=== PATIENT | female | born 1960 | race Caucasian/White ===

== ENCOUNTER 2018-11-25 00:56 | Inpatient (IN) ==
[2018-11-25] MEDS ORDERED: dilTIAZem HCl 5 MG/ML 5 ML VIAL IV ONE (01:08)
[2018-11-25] MEDS ORDERED: dilTIAZem HCl 5 MG/ML 5 ML VIAL IV STA (01:08)
[2018-11-25] MEDS ORDERED: SODIUM CHLORIDE 0.9% 1000ML 1,000 ML IV SCH (01:15)
[2018-11-25 01:16] LABS: Hematocrit (blood only) 46.6 % (37-47); Mean Corpuscular Hgb Conc 34.3 g/dL (32-36); Mean Corpuscular Volume 87.4 fL (80-100); Mean Platelet Volume 10.4 fL (7.4-10.4); Platelet Count 286 K/uL (130-400); RDW Coefficient of Variation 12.5 % (11.5-14.5); Red Blood Count 5.33 M/uL (4.2-5.4); White Blood Count 14.65 K/uL (4.8-10.8)
[2018-11-25] MEDS ORDERED: dilTIAZem HCl 125 MG in DEXTROSE 5% 100 ML IV STA (01:16)
[2018-11-25 01:27] LABS: INR 0.9 (0.9-1.1); Partial Thromboplastin Ratio 0.9; Partial Thromboplastin Time 25.2 Seconds (21.0-31.0); Prothrombin Time 9.7 Seconds (9.0-12.0)
[2018-11-25] MEDS ORDERED: dilTIAZem HCl 125 MG in DEXTROSE 5% 100 ML IV SCH ×2 (01:30→04:55)
[2018-11-25 01:33] LABS: Albumin Level 4.2 gm/dl (3.4-5.0); BUN Creatinine Ratio 18.7 (10-20); Est GFR (African American) 68.4; Magnesium 2.3 mg/dl (1.8-2.4); Potassium 3.4 mmol/L (3.5-5.1)
[2018-11-25 01:40] LABS: Basophils # (auto) 0.04 K/uL (0-0.2); Basophils % (auto) 0.3 %; Eosinophils # (auto) 0.34 K/uL (0-0.5); Eosinophils % (auto) 2.3 %; Immature Granulocytes # (auto) 0.05 K/uL (0.00-0.02); Immature Granulocytes % (auto) 0.3 %; Lymphocytes # (auto) 5.15 K/uL (1.2-3.4); Lymphocytes % (auto) 35.2 %; Monocytes # (auto) 1.61 K/uL (0.11-0.59); Neutrophils # (auto) 7.46 K/uL (1.4-6.5); Neutrophils % (auto) 50.9 %
[2018-11-25 01:44] LABS: Albumin Globulin Ratio 1.1 (0.9-2); Bilirubin,Total 0.5 mg/dl (0.2-1); Total Protein 8.2 gm/dl (6.4-8.2); Troponin I 0.016 ng/ml (0-0.045)
[2018-11-25] MEDS ORDERED: POTASSIUM CHLORIDE 20 MEQ TABCR PO STA (02:25)
[2018-11-25] MEDS ORDERED: METOPROLOL TARTRATE 50 MG TAB PO STA (02:28)
--- NOTE | 2018-11-25 02:30 | History & Physical Report ---
Date of Service November 25, 2018 Assessment & Plan (1) Atrial fibrillation with RVR: New onset Rule out pulmonary embolism with pleuritic chest pain complaints Hypokalemia, heavy caffeinated beverage intake possibly contributory to tachyarrhythmia. Hyperglycemia rule out DM PCU Initiate beta-serge Wean off Cardizem drip Replace potassium CT chest PE study TTE, Cardiology consult RE new onset A. fib (Dr. Zapata as per patient family's request.) IV heparin for thromboembolic prophylaxis for now for AF. Patient counseled to limit caffeine dated beverage intake in light of tachyarrhythmia Check hemoglobin A1C DVT prophylaxis. Heparin Full code History of Present Illness Chief Complaint: Chest pain Primary Care Provider: Bruce Wills History obtained from patient, family, and records. No significant medical history. Patient was lying in bed last night when she noted pleuritic midsternal chest pain and heaviness, feeling tingly, and palpitations. No shortness of breath no diaphoresis. Patient admits to daily caffeinated soda intake (5/day). Short lived episodes of palpitations noted in the last month. No consultations done. At the ER, patient noted to be in rapid A. fib, cardiac rate 150s IV Cardizem bolus/drip initiated at the ER. 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 Beliefs That Will Affect Care: None Current Living Situation: Spouse Other Information That Helps Us Care for You: No Feels Safe at Home: Yes Safety Concerns: Feels Safe At This Time Smoking Status: Never smoker Hx Alcohol Use: No Hx Substance Use: No Review of Systems As per HPI, all 10 systems reviewed, all other ROS negative Physical Exam Vital Signs (Past 24 Hours): Last Vital Signs Temp 36.4 C L 11/25/18 00:58 Pulse 98 H 11/25/18 00:58 Resp 18 11/25/18 00:58 BP 112/85 11/25/18 00:58 Pulse Ox 98 11/25/18 01:35 Physical Exam: GENERAL: Comfortable, pleasant, no respiratory distress, obese SKIN: Normal color, warm HEENT: Bespectacled, pink palpebral conjunctivae, no ptosis, dry buccal mucosa NECK : Supple, short, no tenderness CHEST : CTA, no tenderness HEART : Tachycardic, no obvious murmurs ABDOMEN: Some distention, nontender EXTREMITIES : No LE swelling/tenderness, no other conspicuous deformities noted NEUROLOGIC : Coherent, no facial asymmetry, no other gross focality Results & Data Laboratory Results Laboratory Results WBC 14.65 K/uL (4.8-10.8) H 11/25/18 01:07 RBC 5.33 M/uL (4.2-5.4) 11/25/18 01:07 Hgb 16.0 g/dL (12.0-16.0) 11/25/18 01:07 Hct 46.6 % (37-47) 11/25/18 01:07 MCV 87.4 fL (80-100) 11/25/18 01:07 MCH 30.0 pg (25-34) 11/25/18 01:07 MCHC 34.3 g/dL (32-36) 11/25/18 01:07 RDW Std Deviation 40.0 fL (36.4-46.3) 11/25/18 01:07 RDW Coeff of Isac 12.5 % (11.5-14.5) 11/25/18 01:07 Plt Count 286 K/uL (130-400) 11/25/18 01:07 MPV 10.4 fL (7.4-10.4) 11/25/18 01:07 Immature Gran % (Auto) 0.3 % 11/25/18 01:07 Neut % (Auto) 50.9 % 11/25/18 01:07 Lymph % (Auto) 35.2 % 11/25/18 01:07 [place] % (Auto) 11.0 % 11/25/18 01:07 Eos % (Auto) 2.3 % 11/25/18 01:07 Baso % (Auto) 0.3 % 11/25/18 01:07 Immature Gran # (Auto) 0.05 K/uL (0.00-0.02) H 11/25/18 01:07 Neut # (Auto) 7.46 K/uL (1.4-6.5) H 11/25/18 01:07 Lymph # (Auto) 5.15 K/uL (1.2-3.4) H 11/25/18 01:07 [place] # (Auto) 1.61 K/uL (0.11-0.59) H 11/25/18 01:07 Eos # (Auto) 0.34 K/uL (0-0.5) 11/25/18 01:07 Baso # (Auto) 0.04 K/uL (0-0.2) 11/25/18 01:07 PT 9.7 Seconds (9.0-12.0) 11/25/18 01:07 INR 0.9 (0.9-1.1) 11/25/18 01:07 APTT 25.2 Seconds (21.0-31.0) 11/25/18 01:07 PTT Ratio 0.9 11/25/18 01:07 Sodium 142 mmol/L (136-145) 11/25/18 01:07 Potassium 3.4 mmol/L (3.5-5.1) L 11/25/18 01:07 Chloride 108 mmol/L (98-107) H 11/25/18 01:07 Carbon Dioxide 29 mmol/L (21-32) 11/25/18 01:07 Anion Gap 5.0 (3-11) 11/25/18 01:07 BUN 19 mg/dl (7-18) H 11/25/18 01:07 Creatinine 1.03 mg/dl (0.6-1.2) 11/25/18 01:07 Est Cr Clr Drug Dosing 70.0 ml/min 11/25/18 01:07 Est GFR ( Amer) 68.4 11/25/18 01:07 Est GFR (Non-Af Amer) 59.0 11/25/18 01:07 BUN/Creatinine Ratio 18.7 (10-20) 11/25/18 01:07 Glucose 125 mg/dl (70-99) H 11/25/18 01:07 Calcium 9.0 mg/dl (8.5-10.1) 11/25/18 01:07 Magnesium 2.3 mg/dl (1.8-2.4) 11/25/18 01:07 Total Bilirubin 0.5 mg/dl (0.2-1) 11/25/18 01:07 AST 15 U/L (15-37) 11/25/18 01:07 ALT 24 U/L (12-78) 11/25/18 01:07 Alkaline Phosphatase 84 U/L (45-117) 11/25/18 01:07 POC Troponin I < 0.03 ng/ml (0-0.045) 11/25/18 01:09 Troponin I 0.016 ng/ml (0-0.045) 11/25/18 01:07 Total Protein 8.2 gm/dl (6.4-8.2) 11/25/18 01:07 Albumin 4.2 gm/dl (3.4-5.0) 11/25/18 01:07 Globulin 4.0 gm/dl (2.5-4.0) 11/25/18 01:07 Albumin/Globulin Ratio 1.1 (0.9-2) 11/25/18 01:07 Lipase 140 U/L (73-393) 11/25/18 01:07 TSH 2.370 uIu/ml (0.300-4.500) 11/25/18 01:07 Diagnostic Findings Chest x-ray as per my interpretation cardiomegaly EKG as per my interpretation : Rate 160, A. fib, PRWP
[2018-11-25] MEDS ORDERED: METOPROLOL TARTRATE 1 MG/ML VIAL IV STA (02:56)
[2018-11-25] MEDS ORDERED: LACTATED RINGER'S 1,000 ML IV ONE ×3 (02:56→05:51)
[2018-11-25] MEDS ORDERED: Heparin IV Standard *NO* Bolus STA (03:06)
--- NOTE | 2018-11-25 03:10 | Emergency Department Note ---
History of Present Illness General Chief complaint: Chest Pain Stated complaint: CHEST PAIN History of Present Illness Maximum Pain Intensity: 10 This 58-year-old presents to the ER complaining of heart racing since 10 PM Location: Chest Quality: Heart racing Severity: Moderate Duration: Since 10 PM Timing: Since 10 PM Context: Patient was concerned and came in Modifying factors: better with nothing; worse with nothing Patient states she was sitting in her room as she is babysitting her grandkids and felt her heart racing. She states 1 year ago she had the same symptoms that resolved on its own. She did not see anybody for this. Patient states she is healthy with no active medical problems. Patient states she has for coca russell daily. No other caffeine. No alcohol or drug use. No change in her daily activities. Patient denies chest pain, dyspnea, abdominal pain, leg pain or swelling. No prior heart testing Home Medications Home Medications Medication Instructions Recorded Confirmed Type No Known Home Medications 11/25/18 11/25/18 History Allergies Allergy/AdvReac Type Severity Reaction Status Date / Time No Known Allergies Allergy Unverified 11/25/18 02:24 Past Med/Surg History Medical History No acute medical problems Social History Feels Safe at Home: Yes Smoking Status: Never smoker Review of Systems All systems reviewed & are unremarkable except as noted in HPI & below Physical Exam Vital Signs Vital Signs - 24 hr 11/25/18 00:57 11/25/18 00:58 11/25/18 01:35 Temperature 36.4 C L Temperature Source Oral Sepsis Recent Fever Within 48 Hours No Sepsis Action Taken by Nursing No Action Required Pulse Rate 98 H Pulse Rate [Apical] Pulse Rhythm [Apical] Respiratory Rate 18 Respiratory Effort / Characteristics Respiratory Depth Normal Normal Blood Pressure 112/85 Blood Pressure [Left Arm] Blood Pressure Mean 94 Blood Pressure Mean [Left Arm] Blood Pressure Position [Left Arm] Pulse Oximetry 97 98 Oxygen Delivery Method Room Air Room Air Room Air 11/25/18 01:57 Temperature Temperature Source Sepsis Recent Fever Within 48 Hours Sepsis Action Taken by Nursing Pulse Rate Pulse Rate [Apical] 155 H Pulse Rhythm [Apical] Irregular Respiratory Rate 18 Respiratory Effort / Characteristics Non-Labored Respiratory Depth Normal Blood Pressure Blood Pressure [Left Arm] 126/70 Blood Pressure Mean Blood Pressure Mean [Left Arm] 88 Blood Pressure Position [Left Arm] Lying Pulse Oximetry 98 Oxygen Delivery Method Room Air VITALS: Vitals are noted on the nurse's note and reviewed by myself. Vital signs tachycardic. GENERAL: Pleasant female, in no acute distress, nondiaphoretic, well-developed well-nourished. SKIN: The skin was without rashes, erythema, edema, or bruising. There is no tenting of the skin. Capillary reflex less than 2 seconds. HEAD: Normocephalic atraumatic. EARS: External auditory canals clear, tympanic membranes pearly dubon without erythema or effusion bilaterally. EYES: Pupils equal round and reactive to light and accommodation. Conjunctivae without injection, sclerae without icterus. Extraocular movements intact. NOSE: Patent, turbinates without inflammation or discharge. MOUTH: Mucous membranes moist. Pharynx without erythema or exudate. Uvula midline. Airway patent. Tongue does not deviate. NECK: Supple without nuchal rigidity. No lymphadenopathy. No thyromegaly. Cervical spine is nontender. No JVD. HEART: Tachycardic irregularly irregular LUNGS: Clear to auscultation bilaterally without wheezes, rales or rhonchi. No retractions or accessory muscle use. ABDOMEN: Positive bowel sounds x 4. Normal tympanic percussion. Soft, nontender, without masses or organomegaly. Singleton sign negative. No guarding or rebound tenderness. No CVA tenderness MUSCULOSKELETAL: No muscle atrophy, erythema, or edema noted. NEURO: Patient was alert and oriented to person place and time. Normal sensation to light and sharp touch. No focal neurological deficits. Course Administered Medications Diltiazem HCl 125 mg/ Dextrose 125 mls @ 15 mls/hr IV [facility]H20M [facility]; Protocol Stop: 12/25/18 01:29 Last Titration: 11/25/18 01:38 Dose: 15 mg/hr, 15 mls/hr Documented by: [id number] Admin: 11/25/18 01:33 Dose: 5 mg/hr, 5 mls/hr Documented by: [id number] Cosigned by: [id number] Discontinued Medications Diltiazem HCl (Cardizem) Confirm Administered Dose 25 mg IV .[facility] ONE Stop: 11/25/18 01:09 Last Admin: 11/25/18 01:37 Dose: Not Given Documented by: [id number] Diltiazem HCl (Cardizem) 20 mg IV NOW STA Stop: 11/25/18 01:09 Last Admin: 11/25/18 01:29 Dose: 20 mg Documented by: [id number] Cosigned by: [id number] Sodium Chloride (Nss 1000ml) 1,000 mls @ 999 mls/hr IV .Q1H1M CYNDI Stop: 11/25/18 02:15 Last Infusion: 11/25/18 02:33 Dose: 0 mls/hr Documented by: [id number] Admin: 11/25/18 01:29 Dose: 999 mls/hr Documented by: [id number] Metoprolol Tartrate (Lopressor) 25 mg PO NOW STA Stop: 11/25/18 02:29 Last Admin: 11/25/18 02:47 Dose: 25 mg Documented by: [id number] Potassium Chloride (Klor-Con M20) 60 meq PO NOW STA Stop: 11/25/18 02:26 Last Admin: 11/25/18 02:47 Dose: 60 meq Documented by: [id number] Medical Decision Making Medical Records Attestation: I reviewed the patient's medical records. Home Medications Current Medication List: was personally reviewed by me Laboratory Data Attestation: I reviewed the patient's lab results. Result diagrams: 11/25/18 01:07 11/25/18 01:07 Lab Results 11/25/18 11/25/18 11/25/18 Range/Units 01:07 01:07 01:07 WBC 14.65 H (4.8-10.8) K/uL RBC 5.33 (4.2-5.4) M/uL Hgb 16.0 (12.0-16.0) g/dL Hct 46.6 (37-47) % MCV 87.4 (80-100) fL MCH 30.0 (25-34) pg MCHC 34.3 (32-36) g/dL RDW Std Deviation 40.0 (36.4-46.3) fL RDW Coeff of Isac 12.5 (11.5-14.5) % Plt Count 286 (130-400) K/uL MPV 10.4 (7.4-10.4) fL Immature Gran % (Auto) 0.3 % Neut % (Auto) 50.9 % Lymph % (Auto) 35.2 % [place] % (Auto) 11.0 % Eos % (Auto) 2.3 % Baso % (Auto) 0.3 % Immature Gran # (Auto) 0.05 H (0.00-0.02) K/uL Neut # (Auto) 7.46 H (1.4-6.5) K/uL Lymph # (Auto) 5.15 H (1.2-3.4) K/uL [place] # (Auto) 1.61 H (0.11-0.59) K/uL Eos # (Auto) 0.34 (0-0.5) K/uL Baso # (Auto) 0.04 (0-0.2) K/uL PT 9.7 (9.0-12.0) Seconds INR 0.9 (0.9-1.1) APTT 25.2 (21.0-31.0) Seconds PTT Ratio 0.9 Sodium 142 (136-145) mmol/L Potassium 3.4 L (3.5-5.1) mmol/L Chloride 108 H (98-107) mmol/L Carbon Dioxide 29 (21-32) mmol/L Anion Gap 5.0 (3-11) BUN 19 H (7-18) mg/dl Creatinine 1.03 (0.6-1.2) mg/dl Est Cr Clr Drug Dosing 70.0 ml/min Est GFR ( Amer) 68.4 Est GFR (Non-Af Amer) 59.0 BUN/Creatinine Ratio 18.7 (10-20) Glucose 125 H (70-99) mg/dl Calcium 9.0 (8.5-10.1) mg/dl Magnesium 2.3 (1.8-2.4) mg/dl Total Bilirubin 0.5 (0.2-1) mg/dl AST 15 (15-37) U/L ALT 24 (12-78) U/L Alkaline Phosphatase 84 (45-117) U/L POC Troponin I (0-0.045) ng/ml Troponin I 0.016 (0-0.045) ng/ml Total Protein 8.2 (6.4-8.2) gm/dl Albumin 4.2 (3.4-5.0) gm/dl Globulin 4.0 (2.5-4.0) gm/dl Albumin/Globulin Ratio 1.1 (0.9-2) Lipase 140 (73-393) U/L TSH 2.370 (0.300-4.500) uIu/ml 11/25/18 Range/Units 01:09 WBC (4.8-10.8) K/uL RBC (4.2-5.4) M/uL Hgb (12.0-16.0) g/dL Hct (37-47) % MCV (80-100) fL MCH (25-34) pg MCHC (32-36) g/dL RDW Std Deviation (36.4-46.3) fL RDW Coeff of Isac (11.5-14.5) % Plt Count (130-400) K/uL MPV (7.4-10.4) fL Immature Gran % (Auto) % Neut % (Auto) % Lymph % (Auto) % [place] % (Auto) % Eos % (Auto) % Baso % (Auto) % Immature Gran # (Auto) (0.00-0.02) K/uL Neut # (Auto) (1.4-6.5) K/uL Lymph # (Auto) (1.2-3.4) K/uL [place] # (Auto) (0.11-0.59) K/uL Eos # (Auto) (0-0.5) K/uL Baso # (Auto) (0-0.2) K/uL PT (9.0-12.0) Seconds INR (0.9-1.1) APTT (21.0-31.0) Seconds PTT Ratio Sodium (136-145) mmol/L Potassium (3.5-5.1) mmol/L Chloride (98-107) mmol/L Carbon Dioxide (21-32) mmol/L Anion Gap (3-11) BUN (7-18) mg/dl Creatinine (0.6-1.2) mg/dl Est Cr Clr Drug Dosing ml/min Est GFR ( Amer) Est GFR (Non-Af Amer) BUN/Creatinine Ratio (10-20) Glucose (70-99) mg/dl Calcium (8.5-10.1) mg/dl Magnesium (1.8-2.4) mg/dl Total Bilirubin (0.2-1) mg/dl AST (15-37) U/L ALT (12-78) U/L Alkaline Phosphatase (45-117) U/L POC Troponin I < 0.03 (0-0.045) ng/ml Troponin I (0-0.045) ng/ml Total Protein (6.4-8.2) gm/dl Albumin (3.4-5.0) gm/dl Globulin (2.5-4.0) gm/dl Albumin/Globulin Ratio (0.9-2) Lipase (73-393) U/L TSH (0.300-4.500) uIu/ml MDM Narrative Prior records/ancillary studies reviewed. Triage Nursing notes reviewed. Additional history obtained from family. The patient's history was concerning for palpitations. Differential diagnosis: Etiologies such as premature contractions, electrolyte abnormality, cardiac dysrhythmia, thyroid dysfunction, pulmonary embolism, infection, gastrointestinal, as well as others were entertained. Physical examination: Benign as above. ER treatment provided: IV Cardizem x2 and drip was initiated On reassessment the patient felt better. Diagnostic interpretation by me: Cardiac monitoring revealed A. fib with RVR. The electrocardiogram was irregularly irregular, minimal ST depression in the lateral leads, ventricular rate of 166. Impression A. fib with RVR interpreted by myself. No old EKG The labs revealed negative troponin. Euthyroid Imaging studies: Chest x-ray with no acute consolidation, pneumothorax or free air per my interpretation. CHADS2 Score Congestive HF (1): 0 Hypertension (1) :0 Age >75 years (1) :0 Diabetes mellitus (1):0 Stroke/TIA/TE (2): 0 Score: 0 CHADS2 Unadjusted ischemic stroke rate (% per year) 0: 0.6% 1: 3.0% 2: 4.2% 3: 7.1% 4: 11.1% 5: 12.5% 6: 13.0% Consultation: A consultation was placed with Dr. Schmidt, hospitalist. The case was discussed and diagnostics were reviewed. The patient was evaluated in the ER for further treatment. This appears to be consistent with new onset A. fib with RVR. Patient was given 2 boluses of Cardizem with no real change in heart rate. She was started on a drip. Patient is agreeable treatment plan of admission. Medicine was consulted. By the evaluation outlined above emergent etiologies such as electrolyte abnormality thyroid dysfunction, pulmonary embolism, infection, as well as others were deemed relatively unlikely. The pt informed about the findings as listed above. All questions were answered and pleased with the treatment. Impression & Plan Atrial fibrillation with RVR Critical Care Time I have personally spent greater than 30 minutes of critical care time in the direct management of this patient. This includes bedside care, interpretation of diagnostic studies, and testing, discussion with consultants, patient, and family members, and other required patient management activities. This 30 minutes is in excess of all separately billable procedures. Critical Care Time: Yes Total Critical Care Time: 30 Discharge Plan Visit Data Chief Complaint: Chest Pain Stated Complaint: CHEST PAIN ED Provider: Cindy Santiago ED Midlevel Provider: Maria Elena Lake Discharge Problem: Atrial fibrillation with RVR Patient Disposition: Admitted As Inpatient Condition: Good Forms Stand Alone Forms: Call Back Authorization, [facility] Prescriptions Prescriptions: No Action No Known Home Medications RF: 0 Referrals Referrals: Bruce Wills [Primary Care Provider] -
[2018-11-25] MEDS ORDERED: HEPARIN 25000 UNIT/500 ML D5W IV ONE (03:40)
[2018-11-25] MEDS ORDERED: OPTIRAY 320 125ml IV PRN (04:33)
[2018-11-25] MEDS ORDERED: MoRPHine SULFATE 4 MG/ML 1 ML CARP\\VIAL IV PRN (04:55)
[2018-11-25] MEDS ORDERED: NITROGLYCERIN SL 0.4 MG/TAB TAB SL PRN (04:55)
[2018-11-25] MEDS ORDERED: LORazepam 0.25 MG/0.5 ML VIAL IV PRN (04:55)
[2018-11-25] MEDS ORDERED: TRAMADOL HCL 50 MG TABLET PO PRN (04:55)
[2018-11-25] MEDS ORDERED: ACETAMINOPHEN 325 MG TAB PO PRN (04:55)
[2018-11-25] MEDS ORDERED: PROCHLORPERAZINE 5 MG in SYRINGE 4 ML IV PRN (04:55)
[2018-11-25] MEDS ORDERED: HEPARIN STANDARD DEXTROSE 25,000 UNITS/500 ML IV SCH (05:00)
[2018-11-25] MEDS ORDERED: DIGOXIN 250 MCG in SYRINGE 9 ML IV ONE (05:15)
[2018-11-25] MEDS ORDERED: METOPROLOL TARTRATE 25 MG TAB PO ONE (05:15)
[2018-11-25] MEDS ORDERED: METOPROLOL TARTRATE 25 MG TAB PO STA (05:52)
[2018-11-25 06:20] LABS: Estimated Average Glucose 114 mg/dl; Hemoglobin A1C 5.6 % (4.5-5.6)
--- NOTE | 2018-11-25 07:27 | CT Scan Report ---
CHEST CTA for PULMONARY ARTERIES CT DOSE: 392.63 mGy.cm HISTORY: Atypical chest pain TECHNIQUE: Multiaxial CT images of the chest were performed following the intravenous administration of contrast to evaluate the pulmonary arteries. Maximal intensity projection images were also obtaine d. A dose lowering technique was utilized adhering to the principles of ALARA. COMPARISON STUDY: Chest 11/25/2018. FINDINGS: The visualized liver and spleen are unremarkable. No mediastinal or hilar lymphadenopathy. The heart is mildly enlarged. No pleural or pericardial effusions. No fractures within the visualized osseous structures. The central airways are patent. No pneumothorax. Subtle patchy groundglass densi ties within the bilateral lower lobes and left perihilar location. This may represent small airways d isease or dependent change. A low-grade pneumonitis could also have a similar appearance but is consi dered less likely. Normal caliber thoracic aorta with no evidence for dissection. No filling defects within the pulmonary arteries to suggest pulmonary embolus. IMPRESSION: 1. No evidence for pulmonary embolus. 2. Patchy groundglass densities within the bilateral lower lobes and left perihilar location. This ma y represent small airways disease or dependent change. A low-grade pneumonitis could also have a miller lar appearance but is considered less likely. 3. Mild cardiomegaly. Electronically signed by: Real Wilder M.D. 11/25/2018 7:26 AM
--- NOTE | 2018-11-25 07:53 | XRay Report ---
XR chest 1V portable CLINICAL HISTORY: 58 years-old Female presenting with Chest Pain. TECHNIQUE: Portable upright AP view of the chest was obtained. COMPARISON: None. FINDINGS: Cardiac silhouette mildly enlarged. No focal opacity. No large effusion or pneumothorax. Osseous stru ctures normal. Upper abdomen normal. IMPRESSION: 1. Cardiomegaly. No other convincing evidence of acute cardiopulmonary disease. Electronically signed by: Juvenal Connor M.D. 11/25/2018 7:52 AM
[2018-11-25 08:37] LABS: Potassium 4.4 mmol/L (3.5-5.1)
[2018-11-25 08:49] LABS: Troponin I 0.068 ng/ml (0-0.045)
[2018-11-25] MEDS ORDERED: METOPROLOL TARTRATE 25 MG TAB PO SCH (09:00)
[2018-11-25 10:19] LABS: Partial Thromboplastin Ratio 1.9
[2018-11-25 10:23] LABS: Partial Thromboplastin Time 52.4 Seconds (21.0-31.0)
--- NOTE | 2018-11-25 11:01 | Cardiology Consultation ---
Date of Consultation November 25, 2018 Assessment & Plan (1) Atrial fibrillation with RVR: Based on her history she has had atrial fibrillation for several years in a paroxysmal manner, now the episode has lasted longer and become more bothersome to her. This episode lasted about 10 hours in duration compared to the prior episodes that have been in the 10-minute range. The rate is very fast during the arrhythmia. She should have something for rate control, I think I would use a beta-serge as she is on. She should also be anticoagulated and I did discuss that with her, I would recommend Eliquis 5 mg twice daily but I have not started that just yet. (2) CHILDRESS (dyspnea on exertion): She describes relatively recent and progressive dyspnea on exertion. Although this could be due to a lot of causes I am concerned that it could represent myocardial ischemia and I think we should do a stress test. She did have low-grade cardiac enzymes, although they are likely due to the rapid heart rate, but could be indicative of coronary artery disease as well. I am going to schedule a stress echo for this afternoon. (3) LVH (left ventricular hypertrophy): She has mild asymmetric left ventricular hypertrophy. That may or may not ever be an issue, there is certainly no obstruction but it may be prudent to use beta blockers for this as well and perhaps the left ventricular hypertrophy has something to do with the atrial fibrillation. History of Present Illness Reason for Consultation: Paroxysmal atrial fibrillation Attending Physician: Rayshawn Bach MD History of Present Illness This is a very pleasant 58-year-old woman who has been in quite good health, takes no medications, but has noticed intermittent palpitations for several years. The episodes have tended to be brief, perhaps 10 minutes in duration or so, and have occurred 3-4 times per year although she also says that she had a lot more frequent episodes over this last summer. She was not overly concerned about them and they have not been identified in the past. She developed 1 of these episodes last evening at around 10 PM, it continued and she felt some chest pressure and shortness of breath and she came into the emergency room where she was identified as having atrial fibrillation with a rapid heart rate. She was started on medications for rate control, she felt better and she is now converted back to sinus rhythm spontaneously at around 8:00 this morning. She does not have exertional chest discomfort but she does note that her exercise ability has diminished over the last several years. She walks her dog regularly, she notes now that when she walks her dog she will be short of breath much more quickly than she has been in the past. She has had no lightheadedness, dizziness, presyncope or syncope. At the time of my evaluation she was feeling well, having converted back to sinus rhythm. Allergies Allergy/AdvReac Type Severity Reaction Status Date / Time No Known Allergies Allergy Unverified 11/25/18 02:24 Home Medications Home Medications Medication Instructions Recorded Confirmed Type No Known Home Medications 11/25/18 11/25/18 History Patient History Medical History No acute medical problems Social History Preferred Language: Bengali Communication Ability: Effective Sensitometrist Required: No Beliefs That Will Affect Care: None Current Living Situation: Spouse Other Information That Helps Us Care for You: No Feels Safe at Home: Yes Safety Concerns: Feels Safe At This Time Smoking Status: Never smoker Hx Alcohol Use: No Hx Substance Use: No Review of Systems Negative for lightheadedness, dizziness, presyncope or syncope. Palpitations as noted. Worsening dyspnea on exertion, no exertional chest pain. No orthopnea or PND or peripheral edema. No GI complaints, no bleeding. No neurologic complaints such as TIA or stroke symptoms. Other systems negative. Physical Exam Vital Signs (Past 24 Hours): Last Vital Signs Temp 36.8 C 11/25/18 07:37 Pulse 67 11/25/18 07:37 Resp 16 11/25/18 07:37 BP 110/69 11/25/18 07:37 Pulse Ox 97 11/25/18 07:37 Physical Exam: Constitutional: Alert, cooperative and in no distress. HEENT: Unremarkable Neck: No jugular venous distention, carotid pulses are normal and equal b ilaterally without bruits. Pulmonary: Clear to auscultation bilaterally. Cardiac: Regular rhythm with no murmur, gallop or rub. Abdomen: Soft, nontender with normal bowel sounds. Extremities: No edema. Distal pulses intact. Neurologic: No focal findings. Gait is steady. Skin: No rash, ecchymoses or petechiae. Results & Data Diagnostic Findings Her electrocardiogram on arrival demonstrates atrial fibrillation with a heart rate of [address]-T abnormalities. An echocardiogram done this morning shows normal left ventricular size and function with mild asymmetric left ventricular hypertrophy.
[2018-11-25] MEDS ORDERED: APIXABAN 5 MG TABLET PO SCH (14:21)
[2018-11-25] MEDS ORDERED: PERFLUTREN LIPID MICROSPHERE (DEFINITY) IV ONE (14:29)
--- NOTE | 2018-11-25 16:04 | Hospitalist Progress Note ---
Date of Service November 25, 2018 Assessment & Plan (1) Atrial fibrillation with RVR: Present on admission with chest discomfort Found to be on Afib with RVR in the ER Starting on cardizem drip in the ER Convert back to sinus rhythm this morning Rate control on metoprolol cardiology on board Heparin drip was d/c Starting on Eliquis 5mg BID, first dose given in the hospital Eliquis major side effect discussed with patient such as abnormal bleeding ECHO done showed no wall motion abnormality with EF 60- 65 % Counseling to reduce on coke intake Pt was advised to avoid any activity that put her at risk of fall due to increase risk of bleeding while on Eliquis Elevated troponin Demand ischemia due to AFib with RVR On heparin drip for the Afib Stress test done this morning was negative Denies any chest pain Stable from cardiology standpoint to discharge home Elevated glucose Hba1c 5.6 DVT px On heparin drip/Eliquis CODE STATUS FULL CODE Disposition Follow up with PCP in 1 week Follow up with Sean Chirinos Cardiology Subjective Pt was seen and examined Lying in bed with no distress with family at bedside Pt said that she feels fine She said that she feels ready to go home Denies any chest pain, palpitation, dizziness and SOB Physical Exam Vital Signs (Past 24 Hours): Last Vital Signs Temp 37 C 11/25/18 12:00 Pulse 73 11/25/18 12:00 Resp 16 11/25/18 12:00 BP 137/86 11/25/18 12:00 Pulse Ox 96 11/25/18 12:00 Physical Exam: General- No acute distress Head- atraumatic Eyes- PERRL, EOMI, ENT- oropharynx clear Neck- supple, no JVD Lungs- clear to auscultation Heart- regular rhythm; no murmur Abdomen- normal bowel sounds, soft, nontender Extremities- no calf tenderness Neuro- alert, oriented x 3; PERRL, EOMI; no facial palsy; no dysarthria Skin- warm & dry
[2018-11-25] MEDS ORDERED: METOPROLOL TARTRATE 50 MG TAB PO SCH ×2 (21:00)
--- NOTE | 2018-11-26 16:12 | Discharge Summary ---
Date of Service November 30, 2018 Admission HPI Per Admitting Provider History obtained from patient, family, and records. No significant medical history. Patient was lying in bed last night when she noted pleuritic midsternal chest pain and heaviness, feeling tingly, and palpitations. No shortness of breath no diaphoresis. Patient admits to daily caffeinated soda intake (5/day). Short lived episodes of palpitations noted in the last month. No consultations done. At the ER, patient noted to be in rapid A. fib, cardiac rate 150s IV Cardizem bolus/drip initiated at the ER. Medical History as above Surgical History : None Family History : Heart disease Personal/Social history : Non-smoker, no EtOH intake, school employee Discharge Data Consultations 11/25/18 01:52 ED Decision to Admit Stat 11/25/18 04:55 Consult Cardiology Routine
--- NOTE | 2018-11-28 09:05 | Discharge Summary ---
Date of Service November 25, 2018 Admission HPI Per Admitting Provider History obtained from patient, family, and records. No significant medical history. Patient was lying in bed last night when she noted pleuritic midsternal chest pain and heaviness, feeling tingly, and palpitations. No shortness of breath no diaphoresis. Patient admits to daily caffeinated soda intake (5/day). Short lived episodes of palpitations noted in the last month. No consultations done. At the ER, patient noted to be in rapid A. fib, cardiac rate 150s IV Cardizem bolus/drip initiated at the ER. Medical History as above Surgical History : None Family History : Heart disease Personal/Social history : Non-smoker, no EtOH intake, school employee Admission Exam Per Admitting Provider GENERAL: Comfortable, pleasant, no respiratory distress, obese SKIN: Normal color, warm HEENT: Bespectacled, pink palpebral conjunctivae, no ptosis, dry buccal mucosa NECK : Supple, short, no tenderness CHEST : CTA, no tenderness HEART : Tachycardic, no obvious murmurs ABDOMEN: Some distention, nontender EXTREMITIES : No LE swelling/tenderness, no other conspicuous deformities noted NEUROLOGIC : Coherent, no facial asymmetry, no other gross focality Principal Diagnosis Afib with RVR Elevated troponin Discharge Exam General- No acute distress Head- atraumatic Eyes- PERRL, EOMI, ENT- oropharynx clear Neck- supple, no JVD Lungs- clear to auscultation Heart- regular rhythm; no murmur Abdomen- normal bowel sounds, soft, nontender Extremities- no calf tenderness Neuro- alert, oriented x 3; PERRL, EOMI; no facial palsy; no dysarthria Skin- warm & dry Discharge Data Allergies Allergy/AdvReac Type Severity Reaction Status Date / Time No Known Allergies Allergy Unverified 11/25/18 02:24 Consultations 11/25/18 01:52 ED Decision to Admit Stat 11/25/18 04:55 Consult Cardiology Routine Ordered Studies 11/25/18 02:57 CT angio chest PE protocol Urgent CHEST CTA for PULMONARY ARTERIES CT DOSE: 392.63 mGy.cm HISTORY: Atypical chest pain TECHNIQUE: Multiaxial CT images of the chest were performed following the intravenous administration of contrast to evaluate the pulmonary arteries. Maximal intensity projection images were also obtained. A dose lowering technique was utilized adhering to the principles of ALARA. COMPARISON STUDY: Chest 11/25/2018. FINDINGS: The visualized liver and spleen are unremarkable. No mediastinal or hilar lymphadenopathy. The heart is mildly enlarged. No pleural or pericardial effusions. No fractures within the visualized osseous structures. The central airways are patent. No pneumothorax. Subtle patchy groundglass densities within the bilateral lower lobes and left perihilar location. This may represent small airways disease or dependent change. A low-grade pneumonitis could also have a similar appearance but is considered less likely. Normal caliber thoracic aorta with no evidence for dissection. No filling defects within the pulmonary arteries to suggest pulmonary embolus. IMPRESSION: 1. No evidence for pulmonary embolus. 2. Patchy groundglass densities within the bilateral lower lobes and left perihilar location. This may represent small airways disease or dependent change. A low-grade pneumonitis could also have a similar appearance but is considered less likely. 3. Mild cardiomegaly. Electronically signed by: Real Wilder M.D. 11/25/2018 7:26 AM Dictated: 11/25/18720 Transcribed: 11/25/18720 XR chest 1V portable CLINICAL HISTORY: 58 years-old Female presenting with Chest Pain. TECHNIQUE: Portable upright AP view of the chest was obtained. COMPARISON: None. FINDINGS: Cardiac silhouette mildly enlarged. No focal opacity. No large effusion or pneumothorax. Osseous structures normal. Upper abdomen normal. IMPRESSION: 1. Cardiomegaly. No other convincing evidence of acute cardiopulmonary disease. Electronically signed by: Juvenal Connor M.D. 11/25/2018 7:52 AM Dictated: 11/25/18 0623 Transcribed: 11/25/18622 Hospital Course (1) Atrial fibrillation with RVR: Present on admission with chest discomfort Found to be on Afib with RVR in the ER Starting on cardizem drip in the ER Convert back to sinus rhythm this morning Rate control on metoprolol cardiology on board Heparin drip was d/c Starting on Eliquis 5mg BID, first dose given in the hospital Eliquis major side effect discussed with patient such as abnormal bleeding ECHO done showed no wall motion abnormality with EF 60- 65 % Counseling to reduce on coke intake Pt was advised to avoid any activity that put her at risk of fall due to increase risk of bleeding while on Eliquis Elevated troponin Demand ischemia due to AFib with RVR On heparin drip for the Afib Stress test done this morning was negative Denies any chest pain Stable from cardiology standpoint to discharge home Elevated glucose Hba1c 5.6 DVT px On heparin drip/Eliquis CODE STATUS FULL CODE Disposition Follow up with PCP in 1 week Follow up with Sean Chirinos Cardiology Total Time Total Time Spent Total Time Spent (In Minutes): 35 minutes Total Time Includes: Examination of the Patient, Discharge Planning, Medication Reconciliation, Communication With Other Providers and Other Discharge Plan Discharge Items Patient Disposition: Home - Self-Care Reason For Visit: AF Discharge Diagnosis: Afib with RVR Elevated troponin Condition: Good Discharge Goals: Decrease discomfort, Improve disease control, Improve function and Increase independence Activity: Resume your previous activity Activity Comment: as tolerated Non-emergency contact: Primary Care Provider and Traveling Buyer Call non-emergency contact if: you have any medication questions Follow-up/Referrals: Bruce Wills [Primary Care Provider] - Diet: Heart Healthy Addtl Provider Instructions: Follow up with your primary care provider (call to schedule for the appointment) Follow up with Cardiology ( Office will contact you for the appointment ) Monitor for any abnormal bleeding since your are on a blood thinner Avoid any activity that increase risk of fall Medication Instructions: Eliquis Your condition is typically treated with an anticoagulant. Anticoagulants will thin your blood to help prevent clots/stroke You should take her medication exactly as directed. Never skip a dose. Never take a double dose. If you miss a dose, take it as soon as you remember. Avoid NSAIDs (Motrin, Aleve, Naproxen, Ibuprofen, Advil, Meloxicam,..) due to risks of bleeding Call your Primary Care doctor if you experience any of the following: Swelling or Pain in your leg Sudden, continuous pain deep in a muscle Pain that worsens when you are active or when you stand still for a long time Chest Pain Sudden Shortness of Breath Rapid or pounding heart beat Fainting Dizziness Cough with blood or bloody sputum Sweating more than normal Bruises Heavy or uncontrolled bleeding Blood in your urine, stool or vomit Black or tarry stools Follow Up: It is important for you to keep your follow up appointments with your medical provider. Prescriptions: New metoprolol tartrate 50 mg Tablet 50 mg PO BID 30 Days Qty: 60 RF: 0 Eliquis 5 mg Tablet 5 mg PO BID 30 Days Qty: 60 RF: 0 No Action No Known Home Medications RF: 0 Stand-Alone Forms: Call Back Authorization, [facility] Discharge Orders: Discharge Order (Routine); Ordered 11/25/18 Ordered By: Rayshawn Bach Admission Data Admit Date/Time: 11/25/18 03:06 Attending Provider: Rayshawn Bach Admit Provider: Hunter Schmidt Primary Care Provider: Bruce Wills Other Providers: Hunter Schmidt ; Rui Zapata Service: Telemetry Other Interventions: Discharge Summary Assessment (RN) Last Done: 11/25/18 16:26 DC Date/Time DO NOT enter until pt leaves facility: 11/25/18 16:47
== END 2018-11-25 16:47 | disposition home or self-care (01) | DRG 309 ==
LOC: ED 00:56 → 2E 03:06